=== PATIENT | female | born 1975 | race Caucasian/White ===

== ENCOUNTER 2019-03-02 17:15 | Emergency (ER) | payer OTHER ==
[~2019-03-02] VITALS: Ht 162.6 cm; Wt 77.1 kg
[2019-03-02 17:15] VITALS: BP 125/74
--- NOTE | 2019-03-02 17:15 | NUR ---
PATIENT BIB EMS TO ER BED 1.
--- NOTE | 2019-03-02 17:20 | NUR ---
T BIB EMS FOR SUSPECTED SEIZURE IN PARKING LOT, PT UNABLE TO RECALL EVENT. UNWITNESSED FALL REPORTED WELL, NOTED ABRASION TO FOREHEAD. PATIENT AOX3 ON TRIAGE. PT PUT IN C-COLLAR PMH---PSYCH, HTN, NO PREV HX OF SEIZURES NKA . DENIES N/V/D; SKIN IS PINK/WARM/DRY; Awake, alert ,LUNGS CLEAR BL; HR EVEN AND REGULAR; PT DENIES ANY FEVER, CP, SOB, OR COUGH AT THIS TIME; PATIENT STATES PAIN OF 0/10 AT THIS TIME; VSS; PATIENT POSITIONED FOR COMFORT; HOB ELEVATED; BEDRAILS UP X2; BED DOWN. ER MD MADE AWARE OF PT STATUS. seizure precaution in place.
[2019-03-02] MEDS ORDERED: DEXTROSE 50% 50 ML SYR IVP ONE (17:40)
[2019-03-02 18:11] LABS: BASOPHILS % (AUTO) 0.8 % (0.0-2.0); EOSINOPHILS # (AUTO) 0.1 K/uL (0-0.4); EOSINOPHILS % (AUTO) 1.5 % (0.0-4.0); HEMATOCRIT 32.2 % (36-48); HEMOGLOBIN 10.5 g/dL (12.0-16.0); LYMPHOCYTES # (AUTO) 1.4 K/uL (2.5-16.5); LYMPHOCYTES % (AUTO) 28.3 % (20.5-51.1); MEAN CORPUSCULAR HEMOGLOBIN 28 pg (27-31); MEAN CORPUSCULAR HGB CONC 33 g/dL (33-37); MONOCYTES # (AUTO) 0.4 K/uL (0.8-1.0); MONOCYTES % (AUTO) 7.2 % (1.7-9.3); NEUTROPHILS # (AUTO) 3.1 K/uL (1.8-7.7); NEUTROPHILS % (AUTO) 62.2 % (42.2-75.2); PLATELET COUNT (AUTO) 176 K/uL (140-450); RED BLOOD CELL COUNT(AUTO) 3.75 MIL/uL (4.20-5.40); RED CELL DISTRIBUTION WIDTH 15.7 % (11.6-13.7); WHITE BLOOD COUNT (AUTO) 4.9 K/uL (4.8-10.8)
--- NOTE | 2019-03-02 18:21 | NUR ---
pt accidently pulled out iv.
[2019-03-02 18:23] LABS: ANION GAP 11.1 (8-16); CARBON DIOXIDE 24.3 mmol/L (21-32); CHLORIDE 102 mmol/L (98-107); GFR ARICAN-AMERICAN 78 mL/min (>90); GLUCOSE 309 mg/dL (74-106); POTASSIUM 4.4 mmol/L (3.5-5.1); SODIUM SERUM 133 mmol/L (136-145); UREA NITROGEN, BLOOD 14 mg/dL (7-18)
--- NOTE | 2019-03-02 18:23 | NUR ---
notified dr. Hernández pt unable to pee at this moment. should I insert straigh cath. per. dr. faust, we just wait .
[2019-03-02 18:28] LABS: ALBUMIN 3.2 g/dL (3.4-5.0); ASPARTATE AMINOTRANSFERASE 22 U/L (15-37); TOTAL BILIRUBIN 0.4 mg/dL (0.0-1.0)
[2019-03-02 18:29] LABS: ACETAMINOPHEN < 0.5 ug/ml (10-30); SALICYLATE < 2.8 mg/dL (2.8-20.0)
--- NOTE | 2019-03-02 19:05 | NUR ---
REPORT RECIEVED FROM KAJAL VALLES.
--- NOTE | 2019-03-02 19:10 | NUR ---
endorsed pt to pm nurse josue VALLES.
--- NOTE | 2019-03-02 20:23 | NUR ---
U/A COLLECTED BY STRAIGHT CATH. U/A SENT TO LAB
--- NOTE | 2019-03-02 20:31 | NUR ---
PT IN BED RESTING WITH EYES OPEN. FAMILY AT BEDSIDE. VSS. X2 SIDE RAILS UP WITH SEIZURE PRECAUTIONS. CONTINUE TO MONITOR.
[2019-03-02 20:38] LABS: APPEARANCE,URINE CLEAR (CLEAR); BILIRUBIN,URINE NEGATIVE (NEGATIVE); BLOOD, URINE NEGATIVE (NEGATIVE); COLOR,URINE YELLOW (YELLOW); LEUKOCYTE ESTERASE ,URINE NEGATIVE (NEGATIVE); NITRITE, URINE NEGATIVE (NEGATIVE); UGLUCOSE 1+ (NEGATIVE)
[2019-03-02 20:53] LABS: BARBITURATE, URINE NEG. ng/ml (NEG <=200); BENZODIAZEPINE, URINE NEG. ng/mL (NEG <=200); CANNABINOID, URINE NEG. ng/mL (NEG <=50); COCAINE, URINE NEG. ng/mL (NEG <=300); OPIATE, URINE NEG. ng/mL (NEG <=2000); PHENCYCLIDINE SCREEN,URINE NEG. ng/mL (NEG <=25)
[2019-03-02] MEDS ORDERED: KETOROLAC 30 MG/ML VIAL IVP ONE (21:40)
[2019-03-02] MEDS ORDERED: KETOROLAC 60 MG/2 ML VIAL IM ONE (21:45)
[2019-03-02] MEDS ORDERED: KETOROLAC 30 MG/ML VIAL ONE (22:00)
[2019-03-02 22:01] VITALS: BP 126/62
--- NOTE | 2019-03-02 22:01 | NUR ---
DISCHARGE PAPERWORK GIVEN TO PT. 12/17 PAIN BUT TOLLERABLE. A&OX4. INSTRUCTED TO F/U WITH PCP AND WHEN TO RETURN TO ER. PT VERBALIZED UNDERSTANDING OF DC INSTRUCTIONS. ALL QUESTIONS ANSWERED.
== END 2019-03-02 22:01 | disposition home or self-care (01) ==
LOC: MED 17:15
DX: S00.01XA Abrasion of scalp, initial encounter (principal); M54.2 Cervicalgia; R55 Syncope and collapse; I10 Essential (primary) hypertension; W22.09XA Striking against other stationary object, initial encounter; Y93.89 Activity, other specified; Y92.89 Other specified places as the place of occurrence of the external cause; Y99.8 Other external cause status
CPT/HCPCS: 36415; 70450; 71045; 72125; 80053; 80305; 81003; 81025; 82550; 82948; 84484; 84703; 85025; 93005; 96372; 96374; 99284; G0480; G0482; J1885; Q0092